=== PATIENT | male | born 1980 | race Caucasian/White ===

== ENCOUNTER 2025-02-22 17:49 | Inpatient (IN) | payer SELFPAY ==
[2025-02-22 18:08] VITALS: BMI 25.3
[2025-02-22 18:09] VITALS: BP 139/95; PULSE 68; RESP 18; TEMP 37.3; O2SAT 97
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
--- OUTSIDE RECORDS SUMMARY | 2025-02-22 19:28 | XMS_ITS | Clinical Summary ---
Author Organization [facility] Address [address] [place] [address] Care Team Providers Care Medical Staff Services Coordinator Name Role Phone Unavailable Primary Care Provider Unavailabl e Allergies No known active allergies Medications No known medications Social History Tobacco Use Types Packs/Day Years Used Date Smoking Tobacco: Never Assessed Sex and Gender Information Value Date Recorded Sex Assigned at Not on file Legal Sex Male 11:55 AM EDT Gender Identity Not on file Sexual Orientation Not on file Last Filed Vital Signs Vital Sign Reading Time Taken Comments Blood Pressure 138/91 12/12/2022 1:03 PM EDT Pulse 67 12/12/2022 1:00 PM EDT Temperature 37.1 C (98.7 F) 12/12/2022 1:00 PM EDT Respiratory Rate - - Oxygen Saturation 97% 12/12/2022 1:00 PM EDT Inhaled Oxygen Concentration - - Weight - - Height - - Body Mass Index - - Plan of Treatment Health Maintenance Due Date Last Done Comments Hepatitis C Screening 1980 DTaP/Tdap/Td (1 - Tdap) 1999 Hep B (1 of 3 - 19+ 3-dose series) 2000 COVID-19 Vaccine (2024-2 6 season) 2024 Influenza (#1) 2024 Zoster (Shingrix) (1 of 2) 2031 HPV Vaccine (No Doses Required) Completed Hep A Aged Out No longer eligi ble based on patient's age to complete this topic Hib Aged Out No longer eligi ble based on patient's age to complete this topic Meningococcal ACWY Aged Out No longer eligible based on patient's age to complete this topic Pneumococcal Aged Out No longer eligi ble based on patient's age to complete this topic
--- OUTSIDE RECORDS SUMMARY | 2025-02-22 19:29 | XMS_ITS | Clinical Summary ---
Author Organization [facility] Address [address] [place] [phone] Phone Care Team Providers Care Commercial Tire Service Technician Name Role Phone John Harmtan MD Primary Care Provider [phone] Allergies No known active allergies Medications OLANZapine (ZYPREXA) 10 MG tabletIndicatio ns:Paranoia Take 1 tablet (10 mg total) by mouth nightly at bedtime. 30 tablet 1 Active Additional Information Patient not taking.Reported on 10/22/2024 Immunizations Immunization Administration Dates Next Due Tdap 08/27/2024 Social History Tobacco Use Types Packs/Day Years Used Date Smoking Tobacco: Never Smokeless Tobacco: Never Tobacco Cessation:Counseling Given: Not Answered Education Answer Date Recorded Are you interested in more education? Not on christiane e 01/07/2023 Are you concerned about learning? Not on file 01/07/2023 No 01/07/2023 No 01/07/2023 Digital Access Answer Date Recorded No 01/07/2023 No 01/07/2023 Reliable internet access at home? Not on file 01/07/2023 Device with a working camera? Not on file Intimate Partner Violence Answer Date R ecorded Denied Basic Needs Not on file 08/27/2024 In the past 12 months have y ou been in a relationship with a person who hurts, threatens, or tries to control you? No 08/27/2024 Worried food would run out Not on file 08/27 In the past 12 months have y ou been in a relationship with a person who hurts, threatens, or tries to control you? No 08/27/2024 Sex and Gender Information Value Date Recorded Sex Assigned at Male 12/25/2022 3:41 PM EDT Legal Sex Male 3:30 PM EDT Gender Identity Male 12/25/2022 3:41 PM EDT Sexual Orientation Straight 12/25/2022 3: 41 PM EDT Last Filed Vital Signs Vital Sign Reading Time Taken Comments Blood Pressure 118/82 10/22/2024 9:38 AM EDT Pulse 74 10/22/2024 9:38 AM EDT Temperature - - Respiratory Rate - - Oxygen Saturation 99% 10/22/2024 9:38 AM EDT Inhaled Oxygen Concentration - - Weight 71.2 kg (157 lb) 10/22/2024 9:38 AM EDT Height - - Body Mass Index - - Plan of Treatment Upcoming Encounters Date Type Department Care Team (Late st Contact Info) Description 10/27/2025 8:30 AM EDT Office Visit [facility] [address] [place] [address] John Hartman MD [address] [place] [address] Health Maintenance Due Date Last Done Comments HEPATITIS C SCREENING 1999 HIV ONE-TIME SCREENING (18-6 5 YEARS) 1999 INFLUENZA VACCINE (#1) 2024 COVID-19 VACCINE (2024-2 6 season) 2024 DEPRESSION SCREENING 08/27/2025 08/27/2024 LIPID PANEL 09/23/2029 09/23/2024 Adult Td,Tdap Booster 08/27/2034 08/27/2024 SMOKING STATUS SCREENING (On ce After 26 Yrs) Completed 08/27/2024 HEPATITIS A VACCINES Aged Out No long er eligible based on patient's age to complete this topic HIB VACCINES Aged Out No longer eligi ble based on patient's age to complete this topic MENINGOCOCCAL VACCINES (ACWY) Aged Out No longer eligible based on patient's age to complete this topic MENINGOCOCCAL VACCINES (B) Aged Out N o longer eligible based on patient's age to complete this topic PNEUMOCOCCAL VACCINES (0-49 years) Aged Out No longer eligible based on patient's age to complete this topic Medical Devices Not on file Procedures Procedure Name Priority Date/Time Associated Diagnosis Comments MA ELECTROCARDIOGRAM, COMPLETE 02/22/2025 3:52 PM EDT BASIC METABOLIC PANEL Routine 02/22/2025 1:54 PM EDT CBC AND DIFFERENTIAL Routine 02/22/2025 1:54 PM EDT URINE DRUG SCREEN Routine 02/21/2025 9:0 5 PM EDT ETHANOL, BLOOD Routine 02/21/2025 6:48 AM EDT ETHANOL, BLOOD Routine 01/20/2025 12:34 PM EDT BASIC METABOLIC PANEL Routine 01/20/2025 12:34 PM EDT CBC AND DIFFERENTIAL Routine 01/20/2025 12:34 PM EDT LIPID PANEL Routine 09/23/2024 9:49 AM EDT Routine general medical examination at a health care facility from Last 3 Months or Most Recently Relevant to Health Maintenance Results * MA ELECTROCARDIOGRAM, COMPLETE (02/22/2025 3:52 PM EDT) 02/22/2025 3:52 PM EDT Narrative 24h00 RAD/CARD EX [facility] - 02/22/2025 3:52 [place] [address] Electrocardiograph Report Signed Patient: Sammy Cruz MR# [id number] : 1980 Acct:[id number] Age/Sex: 44 / M ADM Date: 02/21/25 Loc: ED Attending Dr: Ordering Physician: Kike Lau MD Date of Service: 02/22/25 Procedure(s): EKG 12 lead Accession Number(s): [id number] cc: John Hartman MD; Kike Lau MD~ Test Reason : ekg Blood Pressure : */* mmHG Vent. Rate : 65 BPM Atrial Rate : 65 BPM P-R Int : 132 ms QRS Dur : 88 ms QT Int : 460 ms P-R-T Axes : 66 19 12 degrees QTc Int : 478 ms NORMAL SINUS RHYTHM NORMAL ECG WHEN COMPARED WITH ECG OF 01-OCT-2024 13:24, T WAVE INVERSION NOW EVIDENT IN INFERIOR LEADS Confirmed by Rhiannon CEE SCOTT ([id number]) on 02/22/2025 3:52:30 PM Referred By: Confirmed By: BERNARDO CEE M.D. Acquiring Tech: ST Dictated By: Bernardo Cee MD Signed By: <Electronically signed by Bernardo Cee MD in OV> 02/22/25 1552 Procedure Note Bernardo Cee MD - 02/22/[address] [address] Electrocardiograph Report Signed Patient: Sammy Cruz MR# [id number] : 1980Acct:[id number] Age/Sex: 44 / M ADMDate: 02/21/25 Loc: ED Attending Dr: Ordering Physician: Kike Lau MD Date of Service: 02/22/25 Procedure(s): EKG 12 lead Accession Number(s): [id number] cc: John Hartman MD; Kike Lau MD~ Test Reason : ekg Blood Pressure : */* mmHG Vent. Rate : 65 BPM Atrial Rate : 65 BPM P-R Int : 132 ms QRS Dur : 88 ms QT Int : 460 ms P-R-T Axes : 66 19 12 degrees QTc Int : 478 ms NORMAL SINUS RHYTHM NORMAL ECG WHEN COMPARED WITH ECG OF 01-OCT-2024 13:24, T WAVE INVERSION NOW EVIDENT IN INFERIOR LEADS Confirmed by Rhiannon CEE SCOTT ([id number]) on 02/22/2025 3:52:30 PM Referred By: Confirmed By: BERNARDO CEE M.D. Acquiring Tech: ST Dictated By: Bernardo Cee MD Signed By: <Electronically signed by Bernardo Cee MD in OV> 02/22/25 1552 us Kike Lau MD [place] [facility] Final Result 24h00 RAD/CARD EX [facility] * (ABNORMAL) CBC and differential (02/22/2025 1:54 PM EDT) Only the most recent of2 resultswithin the time period is included. WBC 6.2 4.0 - 11.0 10*3/uL [facility] RBC 5.74 4.2 - 6.0 10*6/uL [facility] HGB 15.6 12.0 - 16.0 g/dL [facility] HCT 47.0 39.0 - 54.0 % [facility] MCV 81.9 80.0 - 96.0 fL [facility] MCH 27.2 27.0 - 31.0 pg [facility] MCHC 33.2 32.0 - 36.0 g/dL [facility] RDW-CV 12.6(L) 12.8 - 18.4 % [facility] PLT 206 140 - 400 10*3/uL [facility] MPV 9.4 8.0 - 12.0 fL [facility] Neut Pct Auto 64.9 50 - 70 % [facility] Lymp Pct Auto 24.0(L) 25 - 45 % [facility] Kent Pct Auto 9.3 4 - 13 % [facility] Eos Pct Auto 1.0 0 - 5 % [facility] Baso Pct Auto 0.6 0 - 2 % [facility] I.G. Pct Auto 0.2 0.0 - 0.5 % [facility] NRBC Pct Auto 0.0 0.0 - 0.2 % [facility] Neut Abs Auto 4.0 2.2 - 4.8 10*3/uL [facility] Lymph Abs Auto 1.5 1.3 - 2.9 10*3/uL [facility] Kent Abs Auto 0.57 0.3 - 0.8 10*3/uL [facility] Eos Abs Auto 0.1 0.0 - 0.2 10*3/uL [facility] Baso Abs Auto 0.0 0.0 - 0.1 10*3/uL [facility] I.G. Abs Auto 0.01 0.00 - 0.08 10*3/uL [facility] NRBC Abs Auto 0.00 0.000 - 0.012 10*3/uL [facility] 02/22/2025 1:54 PM EDT Kike Lau MD LAB BLOOD ORDERABLES F inal Result [address] [phone] * (ABNORMAL) Basic metabolic panel (02/22/2025 1:54 PM EDT) Only the most recent of2 resultswithin the time period is included. Sodium 140 136 - 145 mmol/L [facility] Potassium 4.0 3.5 - 5.1 mmol/L [facility] Chloride 101 98 - 107 mmol/L [facility] Carbon Dioxide 29 20 - 31 mmol/L [facility] Anion Gap 10 5 - 15 mmol/L [facility] Glucose Random 128(H) 74 - 106 mg/dL [facility] Blood Urea Nitrogen 14 9 - 23 mg/dL [facility] Serum Creatinine 1.17 0.70 - 1.30 mg/dL [facility] Glomerular Filtration Rate Est 79 >60 [facility] Comment: Units - mL/min/1.73 msq CKD-EPI Creatinine Equation (2020) used as recommended by The National Kidney Foundation. Start date (06/05/22). Calcium 9.0 8.3 - 10.6 mg/dL [facility] Comment: Please Note: New method for Calcium testing live 03/09/2024. New reference range live 03/09/2024. 02/22/2025 1:54 PM EDT Kike Lau MD LAB BLOOD ORDERABLES F inal Result [id number] [place] [address] * (ABNORMAL) Urine Drug Screen (02/21/2025 9:05 PM EDT) Opiate Screen Urine Negative Negative [facility] Buprenorphine Negative Negative [facility] Barbiturate Screen Urine Negative Negative [facility] Urine Fentanyl Screen Negative Negative [facility] Urine Oxycodone Screen Negative Negative [facility] Phencyclidine Screen Urine Negative Negative [facility] Amphetamine Screen Urine Negative Negative [facility] Benzodiazepines Screen Urine Negative Negative [facility] Cocaine Screen Urine Positive(A) Negative [facility] Cannabinoid Screen Urine Negative Negative [facility] Urine Drug Screen Comment See Text [facility] Comment: Positive results are values greater than or equal to the cut off concentrations listed below: Amphetamine 1000 ng/mL Barbiturate 200 ng/mL Benzodiazepine 200 ng/mL Buprenorphine 5.0 ng/mL Cocaine 300 ng/mL Fentanyl 1.0 ng/mL THC 50 ng/mL Opiate 300 ng/mL Oxycodone 100 ng/mL Phencyclidine 25 ng/mL These results are unconfirmed screening results and are to be used for medical purposes only. 02/21/2025 9:05 PM EDT us Amisha Hart MD URINE ORDERABLES Fin al Result Performing Organization Address City/[facility]/ZIP Co de Phone Number [address] [phone] * Ethanol, blood (02/21/2025 6:48 AM EDT) Only the most recent of2 resultswithin the time period is included. Ethanol <3 <3 mg/dL [facility] 02/21/2025 6:48 AM EDT us Amisha Hart MD LAB BLOOD ORDERABLES Final Result Performing Organization Address [facility]/ZIP Co de Phone Number [place] [phone] [phone] * (ABNORMAL) Lipid panel (09/23/2024 9:49 AM EDT) Cholesterol 190 <200 mg/dL [facility] Triglycerides 182(H) <150 mg/dL [facility] HDL Cholesterol 36(L) >=60 mg/dL [facility] LDL Cholesterol Calculated 118(H) <100 mg/dL [facility] Comment:LDL results calculat ed using the Friedewald Equation. Chol HDL Ratio 5.3(H) <5.0 [facility] 09/23/2024 9:49 AM EDT us John Hartman MD LAB BLOOD ORDERABLES Final Resu lt [facility] [address] [place] [address], [facility] [phone] from Last 3 Months or Most Recently Relevant to Health Maintenance Insurance [facility] [employer]AN [facility] [employer]AN [employer] M[employer] [facility] [employer] Care Teams Commercial Tire Service Technician Relationship Specialty Start Date End Date John Hartman MD [address] [place] [phone] [email or web address] PCP - General Internal Medicine 07/13/24 Additional Source Comments The information contained in this document represents components of the legal health record. It is not the complete legal health record.[facility]
[2025-02-23 08:09] VITALS: BP 122/78; PULSE 69; TEMP 36.9; O2SAT 97
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
[2025-02-23 19:47] VITALS: BP 112/74; PULSE 69; RESP 16; TEMP 36.8; O2SAT 97
[2025-02-24 08:00] VITALS: BP 118/74; PULSE 83; TEMP 37.1; O2SAT 98
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
--- NOTE | 2025-02-24 18:17 | MHC.RECOVRN ---
T/w met with pt in Group Room C on M5 after consult was placed to Addiction Medicine for cocaine? use.? Pt reports he ran out of medications, was unable to sleep, and relapsed on cocaine. He reports that cocaine makes him confused & paranoid. He states he had remained abstinent from cocaine for 6 months prior to his return to use and attributes his success to his ?s encouragement and attending [facility]. Pt denies other substance use or previous treatment for cocaine use.? Discussed risk and reduction strategies including education about the recent drug supply and how cocaine and lack of sleep may contribute to psychosis.? Provided pt with written resources including information on harm reduction, recovery coaching, and pathways to recovery.? Pt states he will be returning to [facility] and ?will never touch it again. My body and mind can not handle it?? T/w provided pt with contact information for further questions or concerns which pt denies at this time.?
[2025-02-24 20:00] VITALS: BP 155/77; PULSE 78; RESP 16; TEMP 36.4; O2SAT 97
--- NOTE | 2025-02-25 10:18 | PM.PSYDC ---
DS: Providers Provider Date of admission: 02/22/25 17:49 Primary care physician: Unknown Physician Consults: 02/22/25 18:04 Consult to Hospitalist Routine Comment: Consulting Provider: [facility] [place] Hospitalists Reason For Exam: New external admit, H+P 02/23/25 18:30 Addiction Medicine Provider Routine Consulting Provider: Addiction Covering Reason for consultation: cocaine use disorder with psychosis Has provider been notified: No DS: Diagnosis Discharge Diagnosis (1) PTSD (post-traumatic stress disorder): Status: Acute (2) Cocaine use disorder: Status: Acute (3) Psychosis: Status: Acute DS: Medications Discharge Medications Home Medications: Previous Rx's ?Medication ?Instructions ?Recorded risperidone 3 mg tablet 3 mg PO BEDTIME #30 tabs 02/24/25 DS: Summary Time Spent with Patient Time attestation: Total time managing care of this patient today ____ minutes. Discharge Plan Discharge Anticipated Discharge Date/Time: 02/25/25 11:00 Patient Disposition: Home, Self-Care Discharge Diagnosis: PTSD Psychosis Cocaine Use Disorder Referrals: PCP Medication Provider [Other] - 3-5 Days Referral Note: Please call your PCP as soon as possible to make an appointment. Ruiz is not able to identify who his PCP is or the name and address of the office. Social work was not able to make the appointment due to this. Social work is recommending in-person appointments with the PCP as well as Ruiz having a conversation with the PCP about a psychiatric medication provider referral. Substance Use Support [Other] - 3-5 Days Referral Note: Social work is recomending substance use support, including NA. Physician,Unknown J [Primary Care Provider, Medical] - 1 Week Discharge Medications: New risperidone 3 mg Tablet 3 mg PO BEDTIME Qty: 30 1RF Discontinued risperidone 1 mg tablet 3 mg PO BEDTIME Patient Comments: Patient hasn't been taking Discharge Orders: Discharge Order (Routine); Ordered 02/25/25 Ordered By: Cara Whittaker Diet: Advance to usual diet Activity on Discharge: As tolerated Stand Alone Forms: Patient Portal Discharge page, Community Support Print Language: Colombian Care Plan Goals: Mood and Behavioral Stabilization Abstinence from Substances Health Concerns: Mood and Behavioral Stabilization Abstinence from Substances Plan of Treatment: Take medications as directed Follow up with your primary care physician Assessment: Denies SI,HI,AH,VH No symptoms of acute herrera or psychosis Section XIIB ends today. Pt requesting discharge. Discharge Date/Time: 02/25/25 10:10
== END 2025-02-25 10:10 | disposition home or self-care (01) | DRG 885 ==
PROVIDERS: Admitting Provider Psychiatry & Neurology Psychiatry; Visit Provider Psychiatry & Neurology Psychiatry
DX: F29 Unspecified psychosis not due to a substance or known physiological condition (principal); F43.10 Post-traumatic stress disorder, unspecified; F14.10 Cocaine abuse, uncomplicated

== ENCOUNTER → 2025-02-22 17:49 | Outpatient (BNV) | payer SELFPAY | PROVIDERS: Admitting Provider Psychiatry & Neurology Psychiatry; Visit Provider Clinical Nurse Specialist Psychiatric/Mental Health, Adult | DX: F29 Unspecified psychosis not due to a substance or known physiological condition (principal); F14.10 Cocaine abuse, uncomplicated; F43.10 Post-traumatic stress disorder, unspecified | CPT/HCPCS: 90792; 99232 ==

== ENCOUNTER → 2025-02-22 17:49 | Outpatient (BNV) | payer SELFPAY | PROVIDERS: Admitting Provider Psychiatry & Neurology Psychiatry; Visit Provider Nurse Practitioner Family | DX: F43.10 Post-traumatic stress disorder, unspecified (principal) | CPT/HCPCS: 99221 ==